=== PATIENT | male | born 1975 | race Caucasian/White ===

== ENCOUNTER 2017-01-23 18:01 | Emergency (ER) | payer SELFPAY ==
[~2017-01-23] VITALS: Ht 160 cm; Wt 72.8 kg
[2017-01-23 18:05] VITALS: TEMP 37; Ht 160 cm; Wt 72.8 kg
--- NOTE | 2017-01-23 18:58 | EMERGENCY ROOM VISIT NOTE ---
History First contact with patient: 18:19 Chief Complaint: HEAD PAIN Stated Complaint: HEAD PAIN History of Present Illness The patient is a 41 year old male who presents to the Emergency Room with complaints of a lump on the right side of his forehead. The patient states that he has had it for approximately 5 months. He was seen by Stanley Banks and was told to look for a rn mds. He states that it does not hurt. There has been no drainage. It is not itchy. He states he does not notice it, except does feel slightly hard to push on. He has some mild pain when he pushes on it. He does not have a family doctor in the area. Review of Systems A complete 10 point review of systems was reviewed with the patient with pertinent positives and negatives as per history of present illness. All else were negative. Past Medical/Surgical History Medical Problems: (1) Alcoholism (2) Anxiety (3) Patient unable to provide medical history Family History FHx: heart disease No pertinent family history Social History Smoking Status: Current Every Day Smoker Alcohol Use: heavy Housing Status: unknown Occupation Status: employed Current/Historical Medications Unable to Obtain Active Prescriptions or Reported Meds Physical Exam Vital Signs Date Time Temp Pulse Resp B/P (MAP) Pulse Ox O2 Delivery O2 Flow Rate FiO2 01/23/17 19:03 91 18 120/75 98 01/23/17 18:05 37.0 95 18 126/80 98 Room Air Physical Exam VITALS: Vitals are noted on the nurse's note and reviewed by myself. Vital signs stable. GENERAL: This is a 41-year-old male, in no acute distress, nondiaphoretic, well- developed well-nourished. SKIN: There is a mobile lump on the right upper forehead. No tenderness. No redness or warmth. NEURO: Patient was alert and oriented to person place and time. Medical Decision & Procedures Medical Decision The patient was evaluated as above. He appears to have a lipoma of the forehead. I explained this to the patient and reassured him that these are typically benign and do not require treatment. He was informed that he may find a rn mds for follow-up to have the lipoma removed if he desires. He was given a handout in French, which is his preferred language. He verbalized understanding of my assessment and treatment plan and was discharged home in good condition. Medication Reconcilliation Current Medication List: was personally reviewed by me Blood Pressure Screening Patient's blood pressure: Normal blood pressure Impression Primary Impression: Lipoma Departure Information Dispostion Home / Self-Care Condition GOOD Prescriptions Unable to Obtain Active Prescriptions or Reported Meds Referrals No Doctor, Assigned (PCP) [facility] Instructions [facility] Additional Instructions Follow-up with your family doctor or a rn mds for further treatment of your lipoma. Problem Qualifiers Primary Impression: Lipoma Lipoma location: head Qualified Codes: D17.0 - Benign lipomatous neoplasm of skin and subcutaneous tissue of head, face and neck
[2017-01-23 19:03] VITALS: BP 120/75; PULSE 91; O2SAT 98
== END 2017-01-23 19:03 | disposition home or self-care (01) ==
LOC: C.EDB 18:04 → C.EDD 19:03
DX: D17.0 Benign lipomatous neoplasm of skin and subcutaneous tissue of head, face and neck (principal); F10.20 Alcohol dependence, uncomplicated; F17.200 Nicotine dependence, unspecified, uncomplicated; Z82.49 Family history of ischemic heart disease and other diseases of the circulatory system